=== PATIENT | female | born 1995 | race Caucasian/White ===

== ENCOUNTER 2018-01-10 16:45 | Emergency (ER) | payer SELFPAY ==
[2018-01-10 17:00] LABS: URINE HCG POC HCG POSITIVE (Negative)
[2018-01-10 21:43] LABS: SECOND ABO/RH TYPE 1 1
== END 2018-01-10 21:58 | disposition home or self-care (01) ==
LOC: ER 16:45
DX: O9A.212 Injury, poisoning and certain other consequences of external causes complicating pregnancy, second trimester (principal); S93.401A Sprain of unspecified ligament of right ankle, initial encounter; S80.212A Abrasion, left knee, initial encounter; S39.91XA Unspecified injury of abdomen, initial encounter; Z3A.14 14 weeks gestation of pregnancy; Z88.8 Allergy status to other drugs, medicaments and biological substances; W18.39XA Other fall on same level, initial encounter; Y93.89 Activity, other specified; Y92.481 Parking lot as the place of occurrence of the external cause; Y99.8 Other external cause status
CPT/HCPCS: 36415; 73600; 76801; 81025; 86850; 86900; 86901; 99285-25; J2791